=== PATIENT | male | born 1955 | race Caucasian/White ===

== ENCOUNTER 2018-11-06 15:24 | Observation (INO) ==
[2018-11-06] MEDS ORDERED: DiphenhydrAMINE HCL 50 MG/ML VIAL IV STA (15:47)
[2018-11-06] MEDS ORDERED: ASPIRIN CHEW 324 MG PO STA (15:47)
[2018-11-06] MEDS ORDERED: methylPREDNISolone 125 MG/2 ML VIAL IV STA (15:47)
--- NOTE | 2018-11-06 15:59 | Emergency Department Note ---
History of Present Illness General Chief complaint: Chest Pain Stated complaint: TIGHTNESS IN CHEST,DIFFICULTY AT TIMES,SOB Time Seen by Provider: 11/06/18 15:32 History of Present Illness Maximum Pain Intensity: 2 This 62-year-old male presents the ER with chief complaint of chest tightness and shortness of breath at 1230 this morning after being in a new condo. He states once he left the condo he was walking with his son on campus and states that the tightness seemed to go up into his throat as well. He also had chest pain. He states that it was when he tried to take in a deep breath. He went to [facility] and they sent him to the emergency room. The patient states that th e pain did not radiate to his jaw or arm. He denies any headache or dizziness. The patient does admit to diaphoresis but it was very humid and warm outside. The patient states that he had a similar episode 2 weeks ago when he came to [email or web address] to look at the new condo. After he was in the condo he had the same symptoms but they dissipated within 1 hour. The patient states that he is followed closely by cardiology at home since his father had an SC at age 44. The patient states that he has had a echocardiogram and stress test within the last year which was normal. The patient does admit also to having elevated blood pressure and cholesterol but is trying diet and exercise and if it is not down in 2 months he will go on medication. The patient states he normally takes his blood pressure at home and has been running approximately 130/85. The patient is very active and exercises routinely. The patient is a non-smoker. The patient denies any history of blood clot. The patient denies any recent travel or surgery. The patient states he currently still feels tight in the [address] It is not as tight as when he was at [facility]. He currently denies any throat tightness. Home Medications Home Medications Medication Instructions Recorded Confirmed Type acetaminophen [Tylenol Extra 500 mg PO Q6H PRN 11/06/18 11/06/18 History Strength] ascorbic acid (vitamin C) [Vitamin 100 mg PO DAILY 11/06/18 11/06/18 History C] aspirin 325 mg PO DAILY 11/06/18 11/06/18 History cholecalciferol (vitamin D3) 1,000 unit PO DAILY 11/06/18 11/06/18 History [Vitamin D3] cyanocobalamin (vitamin B-12) 1,000 mcg PO DAILY 11/06/18 11/06/18 History [Vitamin B-12] diazepam 10 mg PO HS PRN 11/06/18 11/06/18 History lactobacillus combination no.4 3,000 mmu cells PO DAILY 11/06/18 11/06/18 History [Probiotic] levothyroxine [Synthroid] 150 mcg PO DAILY 11/06/18 11/06/18 History Allergies Allergy/AdvReac Type Severity Reaction Status Date / Time gluten Allergy Gastrointestinal Unverified 11/06/18 16:06 Upset metronidazole [From Flagyl] Allergy Rash Unverified 11/06/18 16:06 Penicillins Allergy Unknown Unverified 11/06/18 16:06 celecoxib [From Celebrex] AdvReac Difficulty Unverified 11/06/18 16:06 Breathing ibuprofen AdvReac Unknown Unverified 11/06/18 16:06 Sulfa (Sulfonamide AdvReac Difficulty Unverified 11/06/18 16:06 Antibiotics) Breathing sulfite AdvReac Difficulty Unverified 11/06/18 16:06 Breathing Past Med/Surg History Medical History Celiac disease Chronic low back pain Hyperlipidemia Hypertension Migraine Surgical History History of cholecystectomy History of lumbar laminectomy for spinal cord decompression S/P arthroscopic knee surgery Social History Preferred Language: Latvian Communication Ability: Effective Hearing Ability: Normal Beliefs That Will Affect Care: None marital status: Current Living Situation: Spouse current occupational status: retired Feels Safe at Home: Yes Smoking Status: Never smoker Hx Alcohol Use: No Review of Systems A total of 10 systems reviewed and were otherwise negative Physical Exam Vital Signs Vital Signs - 24 hr 11/06/18 15:25 11/06/18 15:27 11/06/18 15:40 Temperature 37.1 C Temperature Source Oral Sepsis Recent Fever Within 48 Hours No Sepsis New/Unexplained Change in Mental Status No Sepsis Action Taken by Nursing No Action Required Pulse Rate 124 H 107 H Respiratory Rate 18 18 Blood Pressure 180/106 H 165/112 H Blood Pressure Mean 130 129 Pulse Oximetry 98 96 Oxygen Delivery Method Room Air Room Air 11/06/18 15:46 11/06/18 15:47 11/06/18 16:00 Temperature Temperature Source Sepsis Recent Fever Within 48 Hours Sepsis New/Unexplained Change in Mental Status Sepsis Action Taken by Nursing Pulse Rate 107 H 103 H 104 H Respiratory Rate 16 18 Blood Pressure Blood Pressure Mean Pulse Oximetry 98 Oxygen Delivery Method Room Air 11/06/18 17:05 11/06/18 17:06 Temperature Temperature Source Sepsis Recent Fever Within 48 Hours Sepsis New/Unexplained Change in Mental Status Sepsis Action Taken by Nursing Pulse Rate 102 H 104 H Respiratory Rate 29 H 18 Blood Pressure 158/109 H Blood Pressure Mean 125 Pulse Oximetry Oxygen Delivery Method GENERAL: 62-year-old white male appears in no acute distress. MENTAL Status: Patient is alert and oriented. The patient does appear somewhat anxious. EYES: PERRLA. EOMs intact. EARS: Canals clear. TMs without fluid level noted. PHARYNX: No erythema or edema noted. Airway is adequate. NECK: Supple, no lymphadenopathy noted. No carotid bruits noted. LUNGS: Clear auscultation without wheezes rales or rhonchi. CARDIAC: Tachycardic at a rate of 120. Regular rhythm without murmur. Pulses is full and equal throughout. ABDOMEN: Positive bowel sounds all 4 quadrants. Soft, nontender to palpation without organomegaly or masses. LOWER EXTREMITIES: No cyanosis or edema noted. Calves are nontender. Course Administered Medications Discontinued Medications Aspirin (Aspirin) 324 mg PO NOW STA Stop: 11/06/18 15:48 Last Admin: 11/06/18 16:17 Dose: 324 mg Documented by: [id number] Diphenhydramine HCl (Benadryl) 25 mg IV NOW STA Stop: 11/06/18 15:48 Last Admin: 11/06/18 16:18 Dose: 25 mg Documented by: [id number] Ranitidine HCl 50 mg/ Dextrose 102 mls @ 200 mls/hr IV NOW STA Stop: 11/06/18 16:17 Last Infusion: 11/06/18 17:02 Dose: 0 mls/hr Documented by: [id number] Admin: 11/06/18 16:19 Dose: 200 mls/hr Documented by: [id number] Methylprednisolone (Solumedrol) 125 mg IV NOW STA Stop: 11/06/18 15:48 Last Admin: 11/06/18 16:17 Dose: 125 mg Documented by: [id number] Medical Decision Making Differential Diagnosis Allergic reaction, asthma exacerbation, PE, acute SC Medical Records Attestation: I reviewed the patient's medical records. Home Medications Current Medication List: was personally reviewed by me Laboratory Data Attestation: I reviewed the patient's lab results. Result diagrams: 11/06/18 15:57 11/06/18 15:57 Lab Results 11/06/18 11/06/18 11/06/18 Range/Units 15:57 15:57 15:57 WBC 8.72 (4.8-10.8) K/uL RBC 5.31 (4.7-6.1) M/uL Hgb 16.9 (14.0-18.0) g/dL Hct 46.9 (42-52) % MCV 88.3 (80-100) fL MCH 31.8 (25-34) pg MCHC 36.0 (32-36) g/dL RDW Std Deviation 39.1 (36.4-46.3) fL RDW Coeff of Alayna 12.3 (11.5-14.5) % Plt Count 209 (130-400) K/uL MPV 9.8 (7.4-10.4) fL Immature Gran % (Auto) 0.2 % Neut % (Auto) 72.4 % Lymph % (Auto) 19.5 % Dare % (Auto) 7.1 % Eos % (Auto) 0.5 % Baso % (Auto) 0.3 % Immature Gran # (Auto) 0.02 (0.00-0.02) K/uL Neut # (Auto) 6.31 (1.4-6.5) K/uL Lymph # (Auto) 1.70 (1.2-3.4) K/uL Dare # (Auto) 0.62 H (0.11-0.59) K/uL Eos # (Auto) 0.04 (0-0.5) K/uL Baso # (Auto) 0.03 (0-0.2) K/uL PT 10.1 (9.0-12.0) Seconds INR 1.0 (0.9-1.1) APTT 25.0 (21.0-31.0) Seconds PTT Ratio 0.9 POC D-Dimer (0-450) ng/mlFEU Sodium 141 (136-145) mmol/L Potassium 3.7 (3.5-5.1) mmol/L Chloride 109 H (98-107) mmol/L Carbon Dioxide 25 (21-32) mmol/L Anion Gap 7.0 (3-11) BUN 16 (7-18) mg/dl Creatinine 1.03 (0.6-1.4) mg/dl Est Cr Clr Drug Dosing 98.0 ml/min Est GFR ( Amer) 91.1 Est GFR (Non-Af Amer) 78.6 BUN/Creatinine Ratio 15.8 (10-20) Glucose 96 (70-99) mg/dl Calcium 9.6 (8.5-10.1) mg/dl Total Bilirubin 0.5 (0.2-1) mg/dl AST 35 (15-37) U/L ALT 70 (12-78) U/L Alkaline Phosphatase 78 (45-117) U/L CK-MB (CK-2) < 1.0 (0.5-3.6) ng/ml Troponin I < 0.015 (0-0.045) ng/ml Total Protein 7.8 (6.4-8.2) gm/dl Albumin 4.1 (3.4-5.0) gm/dl Globulin 3.7 (2.5-4.0) gm/dl Albumin/Globulin Ratio 1.1 (0.9-2) Lipase 85 (73-393) U/L 11/06/18 Range/Units 16:14 WBC (4.8-10.8) K/uL RBC (4.7-6.1) M/uL Hgb (14.0-18.0) g/dL Hct (42-52) % MCV (80-100) fL MCH (25-34) pg MCHC (32-36) g/dL RDW Std Deviation (36.4-46.3) fL RDW Coeff of Alayna (11.5-14.5) % Plt Count (130-400) K/uL MPV (7.4-10.4) fL Immature Gran % (Auto) % Neut % (Auto) % Lymph % (Auto) % Dare % (Auto) % Eos % (Auto) % Baso % (Auto) % Immature Gran # (Auto) (0.00-0.02) K/uL Neut # (Auto) (1.4-6.5) K/uL Lymph # (Auto) (1.2-3.4) K/uL Dare # (Auto) (0.11-0.59) K/uL Eos # (Auto) (0-0.5) K/uL Baso # (Auto) (0-0.2) K/uL PT (9.0-12.0) Seconds INR (0.9-1.1) APTT (21.0-31.0) Seconds PTT Ratio POC D-Dimer 250 (0-450) ng/mlFEU Sodium (136-145) mmol/L Potassium (3.5-5.1) mmol/L Chloride (98-107) mmol/L Carbon Dioxide (21-32) mmol/L Anion Gap (3-11) BUN (7-18) mg/dl Creatinine (0.6-1.4) mg/dl Est Cr Clr Drug Dosing ml/min Est GFR ( Amer) Est GFR (Non-Af Amer) BUN/Creatinine Ratio (10-20) Glucose (70-99) mg/dl Calcium (8.5-10.1) mg/dl Total Bilirubin (0.2-1) mg/dl AST (15-37) U/L ALT (12-78) U/L Alkaline Phosphatase (45-117) U/L CK-MB (CK-2) (0.5-3.6) ng/ml Troponin I (0-0.045) ng/ml Total Protein (6.4-8.2) gm/dl Albumin (3.4-5.0) gm/dl Globulin (2.5-4.0) gm/dl Albumin/Globulin Ratio (0.9-2) Lipase (73-393) U/L Imaging Data Attestation: I personally reviewed and interpreted this imaging study as follows: My Impression: No acute process noted Radiologist's Impression: XR chest 2V routine CLINICAL HISTORY: 62 years-old Male presenting with Chest Pain, shortness of breath. TECHNIQUE: Portable upright AP view of the chest was obtained. COMPARISON: None. FINDINGS: Cardiomediastinal silhouette normal. Lungs and pleural spaces clear. Degenerative changes of the thoracic spine. Cholecystectomy clips noted. IMPRESSION: 1. No acute cardiopulmonary disease. Electronically signed by: Garry Morales M.D. 11/06/2018 4:53 PM Dictated: 11/06/181651 Transcribed: 06/20/19 1652 ECG Data Indication: chest pain Rhythm: sinus tachycardia Comparison ECG Date: no prior available Blood Pressure Blood Pressure Findings: Elevated blood pressure Blood Pressure Disposition: Referred to patients primary care provider MDM Narrative The patient was evaluated. The patient was placed on a surveillance system monitor and continuous pulse ox. IV access was obtained. The patient was given Solu-Medrol 125 mg IV, Zantac 50 mg IV and Benadryl 25 mg IV. EKG was ordered interpreted as above with sinus tachycardia but no ST changes noted. CBC and differential, renal profile, LFTs, CK-MB, troponin, [id number] d-dimer were ordered. Chest x-ray was ordered interpreted by the radiologist and myself as above without any acute findings. Labs were all reviewed and were unremarkable. The patient's d- dimer was 250. Troponin was less than 0.015. Patient's cardiac score was 3. The patient was independently evaluated by Dr. Barrera who agrees with treatment plan. Due to the patient's elevated blood pressure and noncompliance with medications for his hypertension hyperlipidemia along with his family history of cardiac disease the hospitalist was consulted for admission for cardiac rule out. The patient was in agreement with treatment plan. Impression & Plan Chest pain Discharge Plan Visit Data Chief Complaint: Chest Pain Stated Complaint: TIGHTNESS IN CHEST,DIFFICULTY AT TIMES,SOB ED Provider: Andrew Barrera ED Midlevel Provider: Nanda Murguia Discharge Problem: Chest pain Patient Disposition: Being Evaluated by Hospitalist Condition: Good Forms Stand Alone Forms: Call Back Authorization, [facility], Important Visit Information Prescriptions Prescriptions: No Action cyanocobalamin (vitamin B-12) [Vitamin B-12] 1,000 mcg Tablet 1,000 mcg PO DAILY RF: 0 aspirin 325 mg Tablet,Delayed Release (Dr/Ec) 325 mg PO DAILY RF: 0 levothyroxine [Synthroid] 150 mcg Tablet 150 mcg PO DAILY RF: 0 Vitamin C 100 mg Tablet 100 mg PO DAILY RF: 0 diazepam 10 mg Tablet 10 mg PO HS PRN (Reason: Pain) RF: 0 cholecalciferol (vitamin D3) [Vitamin D3] 1,000 unit Tablet 1,000 unit PO DAILY RF: 0 Probiotic 3 billion cell Capsule 3,000 mmu cells PO DAILY RF: 0 acetaminophen [Tylenol Extra Strength] 500 mg Tablet 500 mg PO Q6H PRN (Reason: Pain) RF: 0 Referrals Referrals: PCP,NO [Primary Care Provider] -
[2018-11-06 16:14] LABS: Basophils # (auto) 0.03 K/uL (0-0.2); Basophils % (auto) 0.3 %; Eosinophils # (auto) 0.04 K/uL (0-0.5); Eosinophils % (auto) 0.5 %; Hematocrit (blood only) 46.9 % (42-52); Hemoglobin 16.9 g/dL (14.0-18.0); Immature Granulocytes # (auto) 0.02 K/uL (0.00-0.02); Immature Granulocytes % (auto) 0.2 %; Lymphocytes % (auto) 19.5 %; Mean Corpuscular Volume 88.3 fL (80-100); Mean Platelet Volume 9.8 fL (7.4-10.4); Monocytes # (auto) 0.62 K/uL (0.11-0.59); Monocytes % (auto) 7.1 %; Neutrophils # (auto) 6.31 K/uL (1.4-6.5); Neutrophils % (auto) 72.4 %; Platelet Count 209 K/uL (130-400); RDW Coefficient of Variation 12.3 % (11.5-14.5); RDW Standard Deviation 39.1 fL (36.4-46.3); Red Blood Count 5.31 M/uL (4.7-6.1); White Blood Count 8.72 K/uL (4.8-10.8)
[2018-11-06 16:25] LABS: Partial Thromboplastin Ratio 0.9; Prothrombin Time 10.1 Seconds (9.0-12.0)
[2018-11-06 16:30] LABS: Alanine Aminotransferase 70 U/L (12-78); Albumin Level 4.1 gm/dl (3.4-5.0); Aspartate Aminotransferase 35 U/L (15-37); BUN Creatinine Ratio 15.8 (10-20); Blood Urea Nitrogen 16 mg/dl (7-18); Calcium 9.6 mg/dl (8.5-10.1); Carbon Dioxide 25 mmol/L (21-32); Chloride 109 mmol/L (98-107); Est GFR (African American) 91.1; Est GFR (Non-African American) 78.6; Glucose 96 mg/dl (70-99); Potassium 3.7 mmol/L (3.5-5.1); Sodium 141 mmol/L (136-145)
[2018-11-06 16:35] LABS: Albumin Globulin Ratio 1.1 (0.9-2); Alkaline Phosphatase 78 U/L (45-117); Bilirubin,Total 0.5 mg/dl (0.2-1); Creatine Kinase MB < 1.0 ng/ml (0.5-3.6); Globulin 3.7 gm/dl (2.5-4.0); Total Protein 7.8 gm/dl (6.4-8.2); Troponin I < 0.015 ng/ml (0-0.045)
--- NOTE | 2018-11-06 16:54 | XRay Report ---
XR chest 2V routine CLINICAL HISTORY: 62 years-old Male presenting with Chest Pain, shortness of breath. TECHNIQUE: Portable upright AP view of the chest was obtained. COMPARISON: None. FINDINGS: Cardiomediastinal silhouette normal. Lungs and pleural spaces clear. Degenerative changes of the thor acic spine. Cholecystectomy clips noted. IMPRESSION: 1. No acute cardiopulmonary disease. Electronically signed by: Garry Morales M.D. 11/06/2018 4:53 PM
--- NOTE | 2018-11-06 18:01 | Emergency Department Note ---
ED Visit Note Patient is a 62-year-old male with a past medical history of hypertension and hyperlipidemia and family heart disease who presents the ER for chest pain associated with shortness of breath and diaphoresis. This occurred [place] [employer]. It did eventually relieved with rest. He does not take any medications for blood pressure or hyperlipidemia. EKG was reviewed. Troponin was negative. D-dimer was negative. Favor patient will likely benefit from observation as he is hypertensive and still slightly tachycardic along with exertional chest pain and shortness of breath. . : Chest pain Qualifiers: Chest pain type: unspecified Qualified Code(s): R07.9 - Chest pain, unspecified
--- NOTE | 2018-11-06 19:07 | History & Physical Report ---
Date of Service November 06, 2018 Assessment & Plan (1) Chest pain: Present on admission with chest tightness associated with SOB Possible related to Pleuritic chest pain Need to R/O ACS Risk factor: age, HTN and family related Troponin on admission negative EKG on admission showed no ischemic changes received Aspirin 325mg, solumedrol and benadryl on admission Will trend troponin Will get a stress echot in am Will make NPO after midnight Monitor in tele Repeat EKG in am Check lipid panel Consider cardiology consult if troponin spike and stress test positive or chest pain continues. (2) HTN (hypertension): BP elevated Not on any BP med If BP remains elevating will start on a BP med Continue monitor BP (3) Hypothyroidism: Check TSH in am Continue levothyroxine for now (4) Migraine: Continue Tylenol prn Tachycardia Will monitor on telemetry Consider to add beta kvng if no improvement DVT px on Lovenox Code Status Full code History of Present Illness Chief Complaint: Chest tightness Primary Care Provider: NO PCP 62 yo M with PMH of hypothyroidism, celiac disease, HTN present to the ER with chest tightness associated with SOB. Pt said that he is in town building a new [employer]. He said that after he left the condo he was walking with his son on campus and he developed chest tightness associated with SOB and diaphoresis. He said that he went to the urgent care, but while at the urgent he said that during exam, he developed chest pain with deep breathing. Pt said that 2 weeks ago he had throat discomfort after leaving the new condo, but he said that he did not have any chest tightness or SOB at that time. He said that the symptoms at that time was improves when he got in his car and turned on the AC. Pt said that today the chest tightness was non radiating to his arms or jaw. He said that his father had a heart attack at age 44. He said that he had a stress test done 1 year ago that was negative. He said that in his last appointment with cardiology his BP was elevated. His post office markup clerk wanted to start him on BP med, but he talked him out of it by doing lifestyles modification. His post office markup clerk agreed, but if BP remains elevating in the next appt that he will be starting o n BP med. Currently he said that he feels fine. Denies any chest pain, palpitation, dizziness and SOB. Allergies Allergy/AdvReac Type Severity Reaction Status Date / Time adhesive tape Allergy Rash Verified 11/06/18 19:54 gluten Allergy Gastrointestinal Unverified 11/06/18 16:06 Upset metronidazole [From Flagyl] Allergy Rash Unverified 11/06/18 16:06 Penicillins Allergy Unknown Unverified 11/06/18 16:06 celecoxib [From Celebrex] AdvReac Difficulty Unverified 11/06/18 16:06 Breathing ibuprofen AdvReac Unknown Unverified 11/06/18 16:06 Sulfa (Sulfonamide AdvReac Difficulty Unverified 11/06/18 16:06 Antibiotics) Breathing sulfite AdvReac Difficulty Unverified 11/06/18 16:06 Breathing Home Medications Home Medications Medication Instructions Recorded Confirmed Type Probiotic 3,000 mmu cells PO DAILY 11/06/18 11/06/18 History Vitamin C 100 mg PO DAILY 11/06/18 11/06/18 History acetaminophen [Tylenol Extra 500 mg PO Q6H PRN 11/06/18 11/06/18 History Strength] aspirin 325 mg PO DAILY 11/06/18 11/06/18 History cholecalciferol (vitamin D3) 1,000 unit PO DAILY 11/06/18 11/06/18 History [Vitamin D3] cyanocobalamin (vitamin B-12) 1,000 mcg PO DAILY 11/06/18 11/06/18 History [Vitamin B-12] diazepam 10 mg PO HS PRN 11/06/18 11/06/18 History levothyroxine [Synthroid] 150 mcg PO DAILY 11/06/18 11/06/18 History metoprolol succinate 25 mg PO QAM #30 tab 11/07/18 Rx Past Med/Surg History Medical History Celiac disease Chronic low back pain Hyperlipidemia Hypertension Migraine Surgical History History of cholecystectomy History of lumbar laminectomy for spinal cord decompression S/P arthroscopic knee surgery Social History Preferred Language: Greek Communication Ability: Effective Hearing Ability: Normal Principal Security Architect Required: No Beliefs That Will Affect Care: None marital status: Current Living Situation: Spouse and Family Current Living Situation Comment: 2 children current occupational status: retired Other Information That Helps Us Care for You: No Feels Safe at Home: Yes Safety Concerns: Feels Safe At This Time Smoking Status: Never smoker Hx Alcohol Use: No Hx Substance Use: No Review of Systems Review of Systems: All systems reviewed & are unremarkable except as noted in HPI & below Physical Exam Physical Exam: General- No acute distress Head- atraumatic Eyes- PERRL, EOMI, ENT- oropharynx clear Neck- supple, no JVD Lungs- clear to auscultation Heart- regular rhythm; no murmur Abdomen- normal bowel sounds, soft, nontender Extremities- no calf tenderness Neuro- alert, oriented x 3; PERRL, EOMI; no facial palsy; no dysarthria Skin- warm & dry Results & Data Vital Signs (Past 12 Hours) Vital Signs Temp Pulse Resp BP Pulse Ox 11/06/18 17:06 104 H 18 11/06/18 17:05 102 H 29 H 158/109 H 11/06/18 16:00 104 H 18 11/06/18 15:47 103 H 98 11/06/18 15:46 107 H 16 11/06/18 15:40 107 H 18 165/112 H 11/06/18 15:27 37.1 C 124 H 18 180/106 H 96 11/06/18 15:25 98 Diagnostic Findings XR chest 2V routine CLINICAL HISTORY: 62 years-old Male presenting with Chest Pain, shortness of breath. TECHNIQUE: Portable upright AP view of the chest was obtained. COMPARISON: None. FINDINGS: Cardiomediastinal silhouette normal. Lungs and pleural spaces clear. Degenerative changes of the thoracic spine. Cholecystectomy clips noted. IMPRESSION: 1. No acute cardiopulmonary disease. Electronically signed by: Garry Morales M.D. 11/06/2018 4:53 PM Dictated: 11/06/181651 Transcribed: 11/06/181651 (1) Chest pain Chest pain type: unspecified Qualified Code(s): R07.9 - Chest pain, unspecified
[2018-11-06] MEDS ORDERED: diazePAM 2 MG TABLET PO PRN (19:34)
[2018-11-06] MEDS ORDERED: METOPROLOL TARTRATE 1 MG/ML VIAL IV PRN (21:33)
[2018-11-06] MEDS ORDERED: ACETAMINOPHEN 500 MG TAB PO PRN (21:34)
[2018-11-06] MEDS: SODIUM CHLORIDE 0.9% 1000ML 1,000 ML IV SCH (22:14)
[2018-11-07 04:12] LABS: BUN Creatinine Ratio 16.2 (10-20); Blood Urea Nitrogen 17 mg/dl (7-18); Calcium 8.8 mg/dl (8.5-10.1); Carbon Dioxide 26 mmol/L (21-32); Chloride 109 mmol/L (98-107); Creatinine Clr Calc Pharmacy 97.8 ml/min; Est GFR (African American) 91.1; Est GFR (Non-African American) 78.6; Glucose 150 mg/dl (70-99); Potassium 4.2 mmol/L (3.5-5.1); Sodium 140 mmol/L (136-145)
[2018-11-07 04:22] LABS: Chol HDL Ratio 3; Cholesterol 230 mg/dl (0-200); HDL Cholesterol 68 mg/dl; LDL Cholesterol Calculated 152 mg/dl; Triglycerides 50 mg/dl (0-150); Troponin I < 0.015 ng/ml (0-0.045); VLDL Cholesterol 10 mg/dl
[2018-11-07] MEDS ORDERED: LEVOTHYROXINE SODIUM 150 MCG TABLET PO SCH (06:30)
[2018-11-07] MEDS ORDERED: ASPIRIN 325 MG ECTAB PO SCH (09:00)
[2018-11-07] MEDS ORDERED: ENOXAPARIN INJ 40 MG/0.4 ML SYR SQ SCH (09:00)
[2018-11-07] MEDS ORDERED: METOPROLOL SUCC 25MG EXT REL TAB PO SCH (11:15)
[2018-11-07] MEDS: SODIUM CHLORIDE 0.9% 1000ML 1,000 ML IV SCH (11:27)
--- NOTE | 2018-11-07 12:49 | Cardiology Progress Note ---
Date of Service November 07, 2018 Assessment & Plan (1) Chest pain: Patient with chest pressure and diaphoresis when walking elevated heart rate since admission. History of patient's family and underlying cardiovascular risk reviewed Patient underwent stress echocardiography today exercising for 8 minutes on a standard Jacob protocol without cardiac symptoms. No evidence of ischemia by EKG or echocardiographic criteria. There are no stress-induced arrhythmias Patient had a resting sinus tachycardia and elevated blood pressures with accelerated heart rate response to exercise Resting echocardiography demonstrated moderate left hypertrophy with asymmetric thickening interventricular septum Recommendations would initiate treatment of hypertension and tachycardia with beta-kvng, Toprol-XL 25 mill grams p.o. ordered first dose today Will need to continue to follow with utilization management rn at home for assessment of symptoms, treatment hypertension and asymmetric hypertrophy of the left ventricle Nathan Dumont MD Subjective Patient seen and examined personally. Please refer to full consultation by Vaishali Fleming Results & Data Vital Signs (Past 12 Hours) Vital Signs Temp Pulse Pulse Pulse Resp BP BP 11/07/18 12:15 37.2 C 105 H 108 H 20 124/81 11/07/18 11:30 37.2 C 108 H 20 124/81 11/07/18 08:00 100 H 11/07/18 07:18 36.7 C 104 H 21 160/85 H 11/07/18 03:26 36.6 C 100 H 19 142/83 H Pulse Ox 11/07/18 12:15 95 11/07/18 11:30 95 11/07/18 08:00 11/07/18 07:18 97 11/07/18 03:26 96 (1) Chest pain Chest pain type: unspecified Qualified Code(s): R07.9 - Chest pain, unspecified
--- NOTE | 2018-11-07 12:56 | Cardiology Consultation ---
Date of Consultation November 07, 2018 Assessment & Plan (1) Chest pain: Negative cardiac enzymes x3. EKG without acute ischemic changes. Chest pain resolved since admission without recurrence. He does have cardiac risk factors including family history of heart disease, uncontrolled hypertension and dyslipidemia Recommend proceeding with exercise stress echo for further evaluation in to rule out ischemia. (2) HTN (hypertension): Patient admits to history of hypertension for which he has been resistant to medical therapies. Apparently lisinopril was previously prescribed by his personal program mgr at [facility] but he declined to take medication. Will likely need antihypertensive therapy on discharge consider Matty versus beta- kvng given sinus tachycardia (3) Sinus tachycardia: Resting sinus tachycardia noted without significant arrhythmias. Patient is asymptomatic. May benefit from beta-kvng therapy. Further recommendations pending review of stress test results. Will not prescribe beta-kvng prior to stress testing. (4) Hypothyroidism: TSH low. May need adjustment to levothyroxine will defer to hospitalist. (5) Dyslipidemia, goal LDL below 130: Would likely benefit from statin therapy given elevated LDL at 152. Patient wishes to discuss with his personal program mgr. Further recommendations pending results of exercise stress echo M blood pressure/heart rate response. Case discussed with Dr. Dumont in detail. History of Present Illness Reason for Consultation: Chest pain Requesting Physician: Dr. Quigley Attending Physician: Dr. Dumont History of Present Illness Patient is a 62-year-old male who presented to [facility] with complaints of substernal chest tightness, shortness of breath and diaphoresis after walking across the [facility] with his son yesterday. Past history significant for underlying hypertension with patient resistant to taking antihypertensive therapy, dyslipidemia, hypothyroidism, family history of premature coronary artery disease and possible sudden cardiac , chronic back pain and chronic migraines. Patient lives in the [facility] and follows with a program mgr in that area on a yearly basis. At his last visit he was found to have uncontrolled hypertension and lisinopril 5 mg daily was prescr ibed. Patient admits he has not been taking his medication. Patient reports he has an annual stress test due to his family history with the last 1 being approximately 1 year ago and he was told this was normal. He denies prior personal history of coronary artery disease, arrhythmia, murmur or significant valvular disease, or history of cardiac catheterization. Yesterday he was renovating a recently purchased [employer] in the [facility] in was at around a lot of chemicals. Shortly afterwards he described chest tightness and difficulty catching his breath. He felt this may have been due to inhalation of chemicals. Him and his son decided to go out for a walk to "get fresh air. He subsequently reported worsening chest tightness and shortness of breath with walking. He decided to seek treatment at the local urgent care clinic however due to his chest pain symptoms, it was recommended he come to the emergency department for evaluation. Upon arrival to the emergency department he was treated with albuterol inhaler without significant improvement. EKG demonstrated normal sinus rhythm without ischemic changes, although he was mildly tachycardic. Initial cardiac enzymes negative. Uncontrolled hypertension noted. Mildly low TSH also noted. It was decided he should be admitted for observation due to his risk factors and symptoms. His chest tightness resolved spontaneously in the emergency department. At time of consult, patient reports feeling relatively well. No recurrent chest pain or shortness of breath since admission. Cardiac enzymes unremarkable x3. He does have chronic back problems but feels he should be able to ambulate on a treadmill. No unusual shortness of breath or chest tightness leading up to this episode. However he does report having neck/throat tightness approximately 1 week ago which he attributed to his cervical spine disease. Allergies Allergy/AdvReac Type Severity Reaction Status Date / Time adhesive tape Allergy Rash Verified 11/06/18 19:54 gluten Allergy Gastrointestinal Unverified 11/06/18 16:06 Upset metronidazole [From Flagyl] Allergy Rash Unverified 11/06/18 16:06 Penicillins Allergy Unknown Unverified 11/06/18 16:06 celecoxib [From Celebrex] AdvReac Difficulty Unverified 11/06/18 16:06 Breathing ibuprofen AdvReac Unknown Unverified 11/06/18 16:06 Sulfa (Sulfonamide AdvReac Difficulty Unverified 11/06/18 16:06 Antibiotics) Breathing sulfite AdvReac Difficulty Unverified 11/06/18 16:06 Breathing Home Medications Home Medications Medication Instructions Recorded Confirmed Type acetaminophen [Tylenol Extra 500 mg PO Q6H PRN 11/06/18 11/06/18 History Strength] ascorbic acid (vitamin C) [Vitamin 100 mg PO DAILY 11/06/18 11/06/18 History C] aspirin 325 mg PO DAILY 11/06/18 11/06/18 History cholecalciferol (vitamin D3) 1,000 unit PO DAILY 11/06/18 11/06/18 History [Vitamin D3] cyanocobalamin (vitamin B-12) 1,000 mcg PO DAILY 11/06/18 11/06/18 History [Vitamin B-12] diazepam 10 mg PO HS PRN 11/06/18 11/06/18 History lactobacillus combination no.4 3,000 mmu cells PO DAILY 11/06/18 11/06/18 History [Probiotic] levothyroxine [Synthroid] 150 mcg PO DAILY 11/06/18 11/06/18 History Patient History Medical History Celiac disease Chronic low back pain Hyperlipidemia Hypertension Migraine Surgical History History of cholecystectomy History of lumbar laminectomy for spinal cord decompression S/P arthroscopic knee surgery Social History Preferred Language: Sami Communication Ability: Effective Hearing Ability: Normal Risk Control Manager Required: No Beliefs That Will Affect Care: None marital status: Current Living Situation: Spouse and Family Current Living Situation Comment: 2 children current occupational status: retired Other Information That Helps Us Care for You: No Feels Safe at Home: Yes Safety Concerns: Feels Safe At This Time Smoking Status: Never smoker Hx Alcohol Use: No Hx Substance Use: No Review of Systems Review of Systems: All systems reviewed & are unremarkable except as noted in HPI & below Physical Exam Physical Exam: General: NAD. A+Ox3. HEENT: Normocephalic. Atraumatic. PERRL. EOMI. Conjunctiva and sclera clear. NECK: No carotid bruits. No JVD. Carotid upstrokes are brisk. Heart: RRR. S1 and S2 noted without murmur, rubs, gallops. PMI non displaced. Lungs: Clear to auscultation and percussion. No wheezes, rhonchi, rales. Abdomen: Normal bowel sounds. Soft. Nontender. No masses or organomegaly. No abdominal bruits. Extremities: No edema. No clubbing or cyanosis. Pulses: radial=2/4, posterior tibial=2/4, dorsalis pedis = 2/4. NEURO: No focal defic its. PSYCH: Normal. Results & Data Vital Signs (Past 12 Hours) Vital Signs Temp Pulse Pulse Pulse Resp BP BP 11/07/18 12:15 37.2 C 105 H 108 H 20 124/81 11/07/18 11:30 37.2 C 108 H 20 124/81 11/07/18 08:00 100 H 11/07/18 07:18 36.7 C 104 H 21 160/85 H 11/07/18 03:26 36.6 C 100 H 19 142/83 H Pulse Ox 11/07/18 12:15 95 11/07/18 11:30 95 11/07/18 08:00 11/07/18 07:18 97 11/07/18 03:26 96 Laboratory Results 11/07/18 11/06/18 11/06/18 Range/Units 03:41 22:16 16:14 WBC (4.8-10.8) K/uL RBC (4.7-6.1) M/uL Hgb (14.0-18.0) g/dL Hct (42-52) % MCV (80-100) fL MCH (25-34) pg MCHC (32-36) g/dL RDW Std Deviation (36.4-46.3) fL RDW Coeff of Alayna (11.5-14.5) % Plt Count (130-400) K/uL MPV (7.4-10.4) fL Immature Gran % (Auto) % Neut % (Auto) % Lymph % (Auto) % [place] % (Auto) % Eos % (Auto) % Baso % (Auto) % Immature Gran # (Auto) (0.00-0.02) K/uL Neut # (Auto) (1.4-6.5) K/uL Lymph # (Auto) (1.2-3.4) K/uL Cla[place]orne # (Auto) (0.11-0.59) K/uL Eos # (Auto) (0-0.5) K/uL Baso # (Auto) (0-0.2) K/uL PT (9.0-12.0) Seconds INR (0.9-1.1) APTT (21.0-31.0) Seconds PTT Ratio POC D-Dimer 250 (0-450) ng/mlFEU Sodium 140 (136-145) mmol/L Potassium 4.2 (3.5-5.1) mmol/L Chloride 109 H (98-107) mmol/L Carbon Dioxide 26 (21-32) mmol/L Anion Gap 5.0 (3-11) BUN 17 (7-18) mg/dl Creatinine 1.03 (0.6-1.4) mg/dl Est Cr Clr Drug Dosing 97.8 ml/min Est GFR ( Amer) 91.1 Est GFR (Non-Af Amer) 78.6 BUN/Creatinine Ratio 16.2 (10-20) Glucose 150 H (70-99) mg/dl Calcium 8.8 (8.5-10.1) mg/dl Total Bilirubin (0.2-1) mg/dl AST (15-37) U/L ALT (12-78) U/L Alkaline Phosphatase (45-117) U/L CK-MB (CK-2) (0.5-3.6) ng/ml Troponin I < 0.015 < 0.015 (0-0.045) ng/ml Total Protein (6.4-8.2) gm/dl Albumin (3.4-5.0) gm/dl Globulin (2.5-4.0) gm/dl Albumin/Globulin Ratio (0.9-2) Triglycerides 50 (0-150) mg/dl Cholesterol 230 H (0-200) mg/dl LDL Cholesterol, Calc 152 mg/dl VLDL Cholesterol, Calc 10 mg/dl HDL Cholesterol 68 mg/dl Cholesterol/HDL Ratio 3 Lipase (73-393) U/L TSH 0.290 L (0.300-4.500) uIu/ml 11/06/18 11/06/18 11/06/18 Range/Units 15:57 15:57 15:57 WBC 8.72 (4.8-10.8) K/uL RBC 5.31 (4.7-6.1) M/uL Hgb 16.9 (14.0-18.0) g/dL Hct 46.9 (42-52) % MCV 88.3 (80-100) fL MCH 31.8 (25-34) pg MCHC 36.0 (32-36) g/dL RDW Std Deviation 39.1 (36.4-46.3) fL RDW Coeff of Alayna 12.3 (11.5-14.5) % Plt Count 209 (130-400) K/uL MPV 9.8 (7.4-10.4) fL Immature Gran % (Auto) 0.2 % Neut % (Auto) 72.4 % Lymph % (Auto) 19.5 % Claiborne % (Auto) 7.1 % Eos % (Auto) 0.5 % Baso % (Auto) 0.3 % Immature Gran # (Auto) 0.02 (0.00-0.02) K/uL Neut # (Auto) 6.31 (1.4-6.5) K/uL Lymph # (Auto) 1.70 (1.2-3.4) K/uL Cla[place]orne # (Auto) 0.62 H (0.11-0.59) K/uL Eos # (Auto) 0.04 (0-0.5) K/uL Baso # (Auto) 0.03 (0-0.2) K/uL PT 10.1 (9.0-12.0) Seconds INR 1.0 (0.9-1.1) APTT 25.0 (21.0-31.0) Seconds PTT Ratio 0.9 POC D-Dimer (0-450) ng/mlFEU Sodium 141 (136-145) mmol/L Potassium 3.7 (3.5-5.1) mmol/L Chloride 109 H (98-107) mmol/L Carbon Dioxide 25 (21-32) mmol/L Anion Gap 7.0 (3-11) BUN 16 (7-18) mg/dl Creatinine 1.03 (0.6-1.4) mg/dl Est Cr Clr Drug Dosing 98.0 ml/min Est GFR ( Amer) 91.1 Est GFR (Non-Af Amer) 78.6 BUN/Creatinine Ratio 15.8 (10-20) Glucose 96 (70-99) mg/dl Calcium 9.6 (8.5-10.1) mg/dl Total Bilirubin 0.5 (0.2-1) mg/dl AST 35 (15-37) U/L ALT 70 (12-78) U/L Alkaline Phosphatase 78 (45-117) U/L CK-MB (CK-2) < 1.0 (0.5-3.6) ng/ml Troponin I < 0.015 (0-0.045) ng/ml Total Protein 7.8 (6.4-8.2) gm/dl Albumin 4.1 (3.4-5.0) gm/dl Globulin 3.7 (2.5-4.0) gm/dl Albumin/Globulin Ratio 1.1 (0.9-2) Triglycerides (0-150) mg/dl Cholesterol (0-200) mg/dl LDL Cholesterol, Calc mg/dl VLDL Cholesterol, Calc mg/dl HDL Cholesterol mg/dl Cholesterol/HDL Ratio Lipase 85 (73-393) U/L TSH (0.300-4.500) uIu/ml Diagnostic Findings Telemetry reviewed: Normal sinus rhythm and sinus tachycardia with heart rates ranging 90-120 beats per minute. No concerning arrhythmias. EKG on admission demonstrated sinus tachycardia without acute ischemic changes. Chest x-ray on admission demonstrated no acute cardiopulmonary disease. (1) Chest pain Chest pain type: unspecified Qualified Code(s): R07.9 - Chest pain, unspecified (2) HTN (hypertension) Hypertension type: essential hypertension Qualified Code(s): I10 - Essential (primary) hypertension (3) Hypothyroidism Hypothyroidism type: acquired Qualified Code(s): E03.9 - Hypothyroidism, unspecified
--- NOTE | 2018-11-07 12:58 | Discharge Summary ---
Date of Service November 07, 2018 Admission HPI Per Admitting Provider 62 yo M with PMH of hypothyroidism, celiac disease, HTN present to the ER with chest tightness associated with SOB. Pt said that he is in town building a new condo. He said that after he left the condo he was walking with his son on campus and he developed chest tightness associated with SOB and diaphoresis. He said that he went to the urgent care, but while at the urgent he said that during exam, he developed chest pain with deep breathing. Pt said that 2 weeks ago he had throat discomfort after leaving the new condo, but he said that he did not have any chest tightness or SOB at that time. He said that the symptoms at that time was improves when he got in his car and turned on the AC. Pt said that today the chest tightness was non radiating to his arms or jaw. He said that his father had a heart attack at age 44. He said that he had a stress test done 1 year ago that was negative. He said that in his last appointment with cardiology his BP was elevated. His anodiser wanted to start him on BP med, but he talked him out of it by doing lifestyles modification. His anodiser agreed, but if BP remains elevating in the next appt that he will be starting on BP med. Currently he said that he feels fine. Denies any chest pain, palpitation, dizziness and SOB. Admission Exam Per Admitting Provider General- No acute distress Head- atraumatic Eyes- PERRL, EOMI, ENT- oropharynx clear Neck- supple, no JVD Lungs- clear to auscultation Heart- regular rhythm; no murmur Abdomen- normal bowel sounds, soft, nontender Extremities- no calf tenderness Neuro- alert, oriented x 3; PERRL, EOMI; no facial palsy; no dysarthria Skin- warm & dry Principal Diagnosis chest pain Discharge Data Allergies Allergy/AdvReac Type Severity Reaction Status Date / Time adhesive tape Allergy Rash Verified 11/06/18 19:54 gluten Allergy Gastrointestinal Unverified 11/06/18 16:06 Upset metronidazole [From Flagyl] Allergy Rash Unverified 11/06/18 16:06 Penicillins Allergy Unknown Unverified 11/06/18 16:06 celecoxib [From Celebrex] AdvReac Difficulty Unverified 11/06/18 16:06 Breathing ibuprofen AdvReac Unknown Unverified 11/06/18 16:06 Sulfa (Sulfonamide AdvReac Difficulty Unverified 11/06/18 16:06 Antibiotics) Breathing sulfite AdvReac Difficulty Unverified 11/06/18 16:06 Breathing Consultations 11/06/18 17:27 ED Decision to Admit Stat 11/07/18 07:55 Consult Cardiology Routine Hospital Course (1) Chest pain: (2) HTN (hypertension): (3) Hypothyroidism: (4) Migraine: The patient was admitted to the cardiac telemetry floor and serial troponins were drawn and negative. EKGs were without acute ischemic changes. Cardiology was consulted and recommended proceeding with exercise stress echocardiogram for further evaluation to rule out ischemia. The patient had a known cardiac risk factor including early family history of heart disease. He also had uncontrolled hypertension and dyslipidemia. The stress echocardiogram was negative for inducible ischemia with a moderately high workload achieved. There was normal resting wall motion and no stress-induced wall motion abnormality present. There was an accelerated heart rate response to exercise with patient achieving 85% of age-predicted maximum heart rate at 2 minutes into exertion. He was able to continue ambulation on the treadmill for an additional 6 minutes and achieved greater than 100% of expected maximal without cardiac symptoms. Telemetry monitoring revealed the patient had a resting sinus tachycardia in the low 100s as well as elevated blood pressures with an accelerated heart rate response to exercise. Resting echocardiography revealed moderate left ventricular hypertrophy with asymmetric thickening in the interventricular septum. It is recommended that he continue to follow-up with his anodiser at home for assessment of symptoms, treatment of hypertension and asymmetric hypertrophy of the left ventricle. A [id number] examination was performed revealing a patient in no acute distress he was mentating ambulate at baseline. He was asymptomatic and tolerating p.o. well. Physical exam was unremarkable including a normal cardiac exam with no presence of carotid bruits or JVD. The patient was euvolemic and no peripheral edema was present. Metoprolol succinate 25 mg p.o. daily was prescribed at discharge and he was sent home in stable condition with close primary care follow-up recommended. Total Time Total Time Spent Total Time Spent (In Minutes): 60 Total Time Includes: Examination of the Patient, Discharge Planning, Medication Reconciliation and Communication With Other Providers Discharge Plan Discharge Items Patient Disposition: Home - Self-Care Reason For Visit: CHEST PAIN Discharge Diagnosis: chest pain Condition: Good Discharge Goals: Decrease discomfort Activity: Resume your previous activity Non-emergency contact: Primary Care Provider Call non-emergency contact if: you have any medication questions, your pain is not controlled and you have a fever Follow-up/Referrals: PCP,NO [Primary Care Provider] - Diet: Regular Addtl Provider Instructions: Pleases take all medications as instructed on discharge list below. Please follow up with your primary care physician within one week of discharge. It was a pleasure taking care of you! Please call if you have any questions or problems. You can reach a [facility] hospitalist on duty at [facility] 24 hours a day by calling [phone]. Take care of yourself. Blanquita Quigley DO [facility] Hospitalist Prescriptions: New metoprolol succinate 25 mg Tablet Extended Release 24 Hr 25 mg PO QAM Qty: 30 RF: 0 Continued cyanocobalamin (vitamin B-12) [Vitamin B-12] 1,000 mcg Tablet 1,000 mcg PO DAILY RF: 0 aspirin 325 mg Tablet,Delayed Release (Dr/Ec) 325 mg PO DAILY RF: 0 levothyroxine [Synthroid] 150 mcg Tablet 150 mcg PO DAILY RF: 0 Vitamin C 100 mg Tablet 100 mg PO DAILY RF: 0 diazepam 10 mg Tablet 10 mg PO HS PRN (Reason: Pain) RF: 0 cholecalciferol (vitamin D3) [Vitamin D3] 1,000 unit Tablet 1,000 unit PO DAILY RF: 0 Probiotic 3 billion cell Capsule 3,000 mmu cells PO DAILY RF: 0 acetaminophen [Tylenol Extra Strength] 500 mg Tablet 500 mg PO Q6H PRN (Reason: Pain) RF: 0 Stand-Alone Forms: Call Back Authorization, [facility] Discharge Orders: Discharge Order (Routine); Ordered 11/07/18 Ordered By: Blanquita Quigley Admission Data Admit Date/Time: 11/06/18 18:33 Attending Provider: Blanquita Quigley Admit Provider: Saray Hernandez Primary Care Provider: LISA,RAZA Other Providers: Saray Hernandez ; Van Masters Service: Telemetry Other Interventions: Discharge Summary Assessment (RN) Last Done: 11/07/18 12:15 DC Date/Time DO NOT enter until pt leaves facility: 11/07/18 13:15
== END 2018-11-07 13:15 | disposition home or self-care (01) ==
LOC: ED 15:24 → 2S 15:24